=== PATIENT | male | born 1955 | race African-American/Black ===

== ENCOUNTER 2021-01-13 00:13 | Emergency (ER) | payer OTHER, MEDICARE ==
[~2021-01-13] VITALS: Ht 167.6 cm; Wt 90.0 kg
[2021-01-13] MEDS ORDERED: PHEN51CR24 TP (01:50)
[2021-01-13] MEDS ORDERED: TOPUD MT (01:50)
[2021-01-13] MEDS ORDERED: HYDR25SU37 RC (01:50)
[2021-01-13] MEDS ORDERED: ACETAMINOPHEN 325MG TABLET PO ONE (02:00)
[2021-01-13 03:00] VITALS: BP 127/78
== END 2021-01-13 03:00 | disposition home or self-care (01) ==
LOC: ER 00:13
DX: K64.4 Residual hemorrhoidal skin tags (principal); I10 Essential (primary) hypertension
CPT/HCPCS: 99283